=== PATIENT | female | born 1990 | race Caucasian/White ===

== ENCOUNTER 2021-01-29 12:07 | Emergency (ER) | payer OTHER ==
[~2021-01-29] VITALS: Ht 180.3 cm; Wt 106.0 kg
[2021-01-29 12:51] LABS: BILIRUBIN NEGATIVE (NEGATIVE); BLOOD TRACE-INTACT Ery/uL (NEGATIVE); CLARITY HAZY (CLEAR); COLOR YELLOW (YELLOW); GLUCOSE (U) NORMAL (NORMAL); LEUKOCYTES TRACE Leu/uL (NEGATIVE); NITRITE NEGATIVE (NEGATIVE); PROTEIN NEGATIVE (NEGATIVE)
[2021-01-29 13:06] LABS: BACTERIA 2+; URINARY RBC RARE; URINARY WBC RARE
[2021-01-29 13:07] LABS: AMORPHOUS URATES CRYSTALS MODERATE; MUCOUS TRACE
[2021-01-29 15:14] LABS: BASOPHIL 1.2 % (0-2); EOSINOPHIL 4.3 % (0-5); HCT 41.1 % (37.0-47.0); HGB 13.5 g/dl (12.5-16.0); LYMPHOCYTE 41.5 % (15-48); MCH 28.5 pg (25.0-31.0); MCHC 32.8 g/dL (32.0-36.0); MCV 86.7 fL (78.0-100.0); MPV 10.3 fL (6.0-9.5); NEUTROPHIL 46.3 % (41-80); NRBC 0; PLT 234 K/uL (150-400); RBC 4.74 M/uL (4.20-5.40); RDW 13.9 % (11.5-14.0); WBC 6.8 K/uL (4.0-10.5)
[2021-01-29] MEDS ORDERED: ZOFRAN4 M1 PO (15:48)
== END 2021-01-29 15:56 | disposition home or self-care (01) ==
LOC: FER 12:07
PROVIDERS: Emergency Medicine
DX: R11.2 Nausea with vomiting, unspecified (principal); R10.9 Unspecified abdominal pain; F17.210 Nicotine dependence, cigarettes, uncomplicated; E03.9 Hypothyroidism, unspecified; F32.9 Major depressive disorder, single episode, unspecified; Z79.899 Other long term (current) drug therapy
CPT/HCPCS: 36415; 81001; 84702; 84703; 85025; 99284